=== PATIENT | female | born 1985 | race Caucasian/White ===

== ENCOUNTER 2018-11-21 14:12 | Emergency (ER) | payer MEDICAID ==
[2018-11-21] MEDS: ONDANSETRON (ODT) 4 MG TAB ODT (15:15)
[2018-11-21] MEDS: HYDROCODONE/APAP (5/325) TAB PO (15:15)
[2018-11-21] MEDS: DIPHTH/TET/ACEL PERTUSS (ADULT) 0.5 ML VIAL IM* (15:17)
== END 2018-11-21 16:08 | disposition home or self-care (01) ==
LOC: FTE 14:12
DX: T21.21XA Burn of second degree of chest wall, initial encounter (principal); X11.8XXA Contact with other hot tap-water, initial encounter; Y92.9 Unspecified place or not applicable; Z23 Encounter for immunization
CPT/HCPCS: 90471; 90715; 99283-25